=== PATIENT | female | born 1980 | race Caucasian/White ===

== ENCOUNTER 2016-12-04 20:25 | Emergency (ER) | payer OTHER ==
[~2016-12-04] VITALS: Ht 157.5 cm; Wt 173.7 kg
[~2016-12-04 20:25] MED LIST: ASPIRIN81 M1 PO; HTN MED; HYDROCHLOROTHIA50 M1 PO; K-DUR10 MEQ PO; LASIX80 M1 PO; METOPROLOL25 MG PO; NORCO 10/325 MG1 TAB PO; PROAIR HFA0.09 MG/Ac IH; PROPRANOLOL 20 MG; PROPRANOLOL10 MG PO; PROZAC; PROZAC20 MG PO; RISPERDAL; TRAMADOL HCL50 MG PO; TRAMADOL50 MG PO; TRAZADONE; TRAZADONE HYDR100 MG PO; WELLBUTRIN; WELLBUTRIN150 MG PO; [UNRECOGNIZED DRUG - REMARK]
[2016-12-04 20:30] VITALS: BP 159/92
--- NOTE | 2016-12-04 21:55 | NUR ---
PT TAKEN TO BED 5
--- NOTE | 2016-12-04 22:11 | NUR ---
PATIENT PRESENTS TO ED WITH GENERALIZED RASH TO LT SIDE OF GROIN AREA . PT STATES RASH HAS BEEN APPARENT [id number] WITH NOTED EYTHEMA AND EDEMA . DENIES N/V/D; SKIN IS PINK/WARM/DRY; AAOX4 WITH EVEN AND STEADY GAIT; LUNGS CLEAR BL; HR EVEN AND REGULAR; PT DENIES ANY FEVER, CP, SOB, OR COUGH AT THIS TIME; PATIENT STATES PAIN OF 8/10 AT THIS TIME; VSS; PATIENT POSITIONED FOR COMFORT; HOB ELEVATED; BEDRAILS UP X2; BED DOWN. ER MD MADE AWARE OF PT STATUS.
[2016-12-04 23:15] VITALS: BP 159/92
--- NOTE | 2016-12-04 23:15 | NUR ---
Patient discharged with v/s stable. Written and verbal after care instructions given and explained. Patient alert, oriented and verbalized understanding of instructions. Ambulatory with steady gait. All questions addressed prior to discharge. ID band removed. Patient advised to follow up with PMD. Rx of AUGMENTIN 875MG PO BID WITH MEALS, BACTRIM DS 800MG-160MG PO BID, AND IBUPROFEN given. Patient educated on indication of medication including possible reaction and side effects. Opportunity to ask questions provided and answered.
== END 2016-12-04 23:15 | disposition home or self-care (01) ==
LOC: MED 20:25
DX: L02.214 Cutaneous abscess of groin (principal); L02.211 Cutaneous abscess of abdominal wall; N61.1 Abscess of the breast and nipple; J45.909 Unspecified asthma, uncomplicated; I11.0 Hypertensive heart disease with heart failure; I50.9 Heart failure, unspecified; Z79.899 Other long term (current) drug therapy

== ENCOUNTER 2016-12-24 22:43 | Emergency (ER) | payer OTHER ==
[~2016-12-24] VITALS: Ht 157.5 cm; Wt 172.4 kg
[2016-12-24 23:17] VITALS: BP 126/101
--- NOTE | 2016-12-25 02:16 | NUR ---
PT TAKEN TO BED 5
--- NOTE | 2016-12-25 02:27 | NUR ---
PATIENT PRESENTS TO ED WITH RT SIDED FACIAL PAIN . PT STATES SHE ONLY FEELS THE PAIN WHEN SHE PRESSES ON THE LOWER RT SIDE OF HER NECK. PT C/O N/V/D . SKIN IS PINK/WARM/DRY; AAOX4 WITH EVEN AND STEADY GAIT; LUNGS CLEAR BL; HR EVEN AND REGULAR; PT DENIES ANY FEVER, CP, SOB, OR COUGH AT THIS TIME; PATIENT STATES PAIN OF 8/10 AT THIS TIME; VSS; PATIENT POSITIONED FOR COMFORT; HOB ELEVATED; BEDRAILS UP X2; BED DOWN. ER MD MADE AWARE OF PT STATUS. FAMILY AT BEDSIDE
--- NOTE | 2016-12-25 02:33 | NUR ---
Dr. King evaluating patient at bedside.
[2016-12-25] MEDS ORDERED: MORPHINE SULFATE 5 MG/ML VIAL IVP ONE ×2 (02:40→03:45)
--- NOTE | 2016-12-25 03:17 | NUR ---
AWAITING MORPHINE TO BE DELIVERED DUE TO ER PYXIS RUNNING OUT
[2016-12-25] MEDS ORDERED: MORPHINE SULFATE 10 MG/ML SYR ONE ×2 (03:38→04:03)
[2016-12-25] MEDS ORDERED: ceFAZolin 1,000 MG VIAL IM ONE (03:45)
[2016-12-25] MEDS ORDERED: WATER STERILE 10 ML MC ONE (04:07)
--- NOTE | 2016-12-25 04:21 | NUR ---
Patient appears to be resting comfortably in bed. Vital Signs within normal limits. Respirations even and unlabored. SIGNIFICANT OTHER AT BEDSIDE
[2016-12-25 04:37] VITALS: BP 125/72
--- NOTE | 2016-12-25 04:38 | NUR ---
Patient discharged with v/s stable. Written and verbal after care instructions given and explained. Patient alert, oriented and verbalized understanding of instructions. Ambulatory with steady gait. All questions addressed prior to discharge. ID band removed. Patient advised to follow up with PMD. Rx of PERCOCET AND AUGMENTIN 875MG PO BID WITH MEALS given. Patient educated on indication of medication including possible reaction and side effects. Opportunity to ask questions provided and answered.
== END 2016-12-25 04:38 | disposition home or self-care (01) ==
LOC: MED 22:43
DX: K04.7 Periapical abscess without sinus (principal); J45.909 Unspecified asthma, uncomplicated; I11.0 Hypertensive heart disease with heart failure; I50.9 Heart failure, unspecified; M06.9 Rheumatoid arthritis, unspecified
CPT/HCPCS: 36415; 80048; 81001; 81025; 85025; 87086; 96372; 96374; 99284; J0690; J2270

== ENCOUNTER 2018-05-06 18:56 | Emergency (ER) | payer OTHER ==
[~2018-05-06] VITALS: Ht 157.5 cm; Wt 136.1 kg
[~2018-05-06 18:56] MED LIST changes: +ACET-787 PO; +ALBU-136 IH; +ASPI81CT89 PO; -ASPIRIN81 M1 PO; +FLUO-387 PO; +FURO-571 PO; -HTN MED; +HYDR-3108 PO; -HYDROCHLOROTHIA50 M1 PO; -K-DUR10 MEQ PO; -LASIX80 M1 PO; +METO25TA14 PO; -METOPROLOL25 MG PO; -NORCO 10/325 MG1 TAB PO; +POTA10TE30 PO; -PROAIR HFA0.09 MG/Ac IH; +PROP10TA PO; -PROPRANOLOL 20 MG; -PROPRANOLOL10 MG PO; -PROZAC; -PROZAC20 MG PO; -RISPERDAL; +TRAM50TA3 PO; -TRAMADOL HCL50 MG PO; -TRAMADOL50 MG PO; -TRAZADONE; -TRAZADONE HYDR100 MG PO; -WELLBUTRIN; -WELLBUTRIN150 MG PO; -[UNRECOGNIZED DRUG - REMARK]
[2018-05-06 19:00] VITALS: BP 100/53
--- NOTE | 2018-05-06 19:15 | NUR ---
PT BIB FRIEND W/C/O BODY ACHES ALL OVER X2DAYS. PT STATES SHE BELIEVES SHE IS HAVING A FIBROMYALGIA FLARE UP. PT STATES HER PAIN IS 10/10 AND IT FEELS SHARP LIKE HER BONES ARE CRACKING. PT STATES IT IS HARD FOR HER TO WALK. PT AAOX4, ON ROOM AIR. NO S/S OF DISTRESS NOTED. PMH: FIBROMYALGIA, HTN, CHF, RHUEMATOID ARTHRITIS NKA
[2018-05-06] MEDS ORDERED: MORPHINE SULFATE 10 MG/ML SYR IM ONE (20:50)
[2018-05-06] MEDS ORDERED: methylPREDNISolone SS 125 MG/2 ML VIAL IM ONE (20:50)
[2018-05-06] MEDS ORDERED: MORPHINE SULFATE 4 MG/ML SYR ONE (21:12)
[2018-05-06] MEDS ORDERED: MORPHINE SULFATE 2 MG/ML SYR ONE (21:13)
[2018-05-06] MEDS ORDERED: ONDANSETRON 4 MG TAB PO ONE (22:00)
[2018-05-06 22:10] VITALS: BP 150/72
--- NOTE | 2018-05-06 22:12 | NUR ---
Patient discharged with v/s stable. Written and verbal after care instructions given and explained. Patient verbalized understanding. Ambulatory with steady gait. PT GETTING RIDE HOME FROM FRIEND, ADVISED NOT TO DRIVE. All questions addressed prior to discharge. Advised to follow up with PMD.
== END 2018-05-06 22:12 | disposition home or self-care (01) ==
LOC: MED 18:56
DX: M79.1 Myalgia (principal); J45.909 Unspecified asthma, uncomplicated; I50.9 Heart failure, unspecified; I10 Essential (primary) hypertension; Z79.899 Other long term (current) drug therapy
CPT/HCPCS: 96372; 99284; J2270; J2930; Q0162

== ENCOUNTER 2019-05-09 07:55 | Emergency (ER) | payer OTHER ==
[~2019-05-09] VITALS: Ht 157.5 cm; Wt 156.5 kg
[~2019-05-09 07:55] MED LIST changes: +ASPI-1718 PO; -ASPI81CT89 PO
[2019-05-09 08:00] VITALS: BP 149/84
--- NOTE | 2019-05-09 08:06 | NUR ---
Patient ambulated to bed 4. RN evaluating patient at bedside.
--- NOTE | 2019-05-09 08:10 | NUR ---
PT C/O INSECT BITE ON CHIN WITH THICK GREEN DRAINAGE X 2 DAYS. PT STATES SHE IS UNABLE TO SEE PAIN SPECIALIST DUE TO INSURANCE REASONS. SHE ALSO C/O THROBBING HEADACHE 05/11. SHE ALSO NEEDS MEDICATION REFILL FOR NORCO 10/ FOR FIBROMYALGIA AND RA, AND AN ABUTEROL INHALER FOR ASTHMA. DENIES N/V/D; SKIN IS PINK/WARM/DRY; AAOX4 WITH EVEN AND STEADY GAIT; PT DENIES ANY FEVER, CP, SOB, OR COUGH AT THIS TIME; PATIENT STATES BITE PAIN OF 10 AT THIS TIME; VSS; PATIENT POSITIONED FOR COMFORT; HOB ELEVATED; BEDRAILS UP X1; BED DOWN. ER MD MADE AWARE OF PT STATUS.
--- NOTE | 2019-05-09 08:22 | NUR ---
Dr. Vázquez evaluating patient at bedside.
[2019-05-09 08:42] VITALS: BP 122/72
--- NOTE | 2019-05-09 08:42 | NUR ---
Patient discharged with v/s stable. Written and verbal after care instructions given and explained. Patient alert, oriented and verbalized understanding of instructions. Ambulatory with steady gait. All questions addressed prior to discharge. ID band removed. Patient advised to follow up with PMD. Rx of Arcadia and Proair HFA given. Patient educated on indication of medication including possible reaction and side effects. Opportunity to ask questions provided and answered.
== END 2019-05-09 08:42 | disposition home or self-care (01) ==
LOC: MED 07:55
DX: M06.9 Rheumatoid arthritis, unspecified (principal); L02.01 Cutaneous abscess of face; J45.909 Unspecified asthma, uncomplicated; F17.210 Nicotine dependence, cigarettes, uncomplicated; I11.0 Hypertensive heart disease with heart failure; I50.9 Heart failure, unspecified; Z71.6 Tobacco abuse counseling; Z98.890 Other specified postprocedural states; Z79.82 Long term (current) use of aspirin; Z79.899 Other long term (current) drug therapy
CPT/HCPCS: 99283

== ENCOUNTER 2019-07-03 15:31 | Emergency (ER) | payer OTHER ==
[~2019-07-03] VITALS: Ht 157.5 cm; Wt 152.4 kg
[2019-07-03 15:37] VITALS: BP 150/85
--- NOTE | 2019-07-03 15:40 | NUR ---
Pt taken to bed 7.
--- NOTE | 2019-07-03 16:00 | NUR ---
C/O IRRITATION/POSS. "BUG BITE" TO RUQ/FLANK AREA, 10/ AND "STINGING" X3 WEEKS. REDNESS/IRRITATION NOTED TO RUQ IN SKIN FOLDS. PT STATES SHE HAS BEEN NAUSEOUS AND VOMITING FOR 3 WEEKS WELL. TENDERNESS NOTED TO THE AREA. PT DENIES FEVER. NO OPEN WOUND NOTED. SIDE RAIL UP X1, BED IN LOW POSITION
--- NOTE | 2019-07-03 16:15 | NUR ---
Patient being evaluated by physician at bedside.
[2019-07-03 16:39] VITALS: BP 150/85
--- NOTE | 2019-07-03 16:39 | NUR ---
Patient discharged with v/s stable. Written and verbal after care instructions given and explained. Patient verbalized understanding. Ambulatory with steady gait. All questions addressed prior to discharge. Advised to follow up with PMD.
== END 2019-07-03 16:39 | disposition home or self-care (01) ==
LOC: MED 15:31
DX: T63.301A Toxic effect of unspecified spider venom, accidental (unintentional), initial encounter (principal); J45.909 Unspecified asthma, uncomplicated; I11.0 Hypertensive heart disease with heart failure; I50.9 Heart failure, unspecified; Z79.82 Long term (current) use of aspirin; Z79.899 Other long term (current) drug therapy; Y92.89 Other specified places as the place of occurrence of the external cause
CPT/HCPCS: 99281

== ENCOUNTER 2019-09-13 22:22 | Emergency (ER) | payer OTHER ==
[~2019-09-13] VITALS: Ht 157.5 cm; Wt 145.1 kg
[2019-09-13 22:25] VITALS: BP 192/75
--- NOTE | 2019-09-13 22:25 | NUR ---
TO BED # 04 AMBULATORY
--- NOTE | 2019-09-13 22:35 | NUR ---
39/F presents to ED with family/friend, c/o SOB and nonradiaiting L sided CP, x3 days. Reports cough x1 month. Reports nausea, denies vomiting. Pt awake and alert, obesity noted, skin normal color warm and dry, SPO2 100% on RA, RR 16 even and unlabored. Lung sounds clear BL. HR even and regular, sinus tach on monitor. BLE edema pitting +3, with tenderness. HX CHF, HTN, Fibromyalgia, asthma, RA Rx Lasix and potassium (ran out/unable to get, for 3 weeks)
--- NOTE | 2019-09-13 22:38 | NUR ---
Dr. Mathis examining patient.
--- NOTE | 2019-09-13 23:02 | NUR ---
X-Ray at bedside.
--- NOTE | 2019-09-13 23:30 | NUR ---
Pt c/o pain all over body from fibromyalgia, Dr Mathis made aware. Per mil cadena, pt is pending d/c.
[2019-09-14 00:09] VITALS: BP 145/84
--- NOTE | 2019-09-14 00:09 | NUR ---
DPatient discharged with v/s stable. Written and verbal after care instructions given and explained. Patient verbalized understanding. Ambulatory with steady gait. All questions addressed prior to discharge. Advised to follow up with PMD.
== END 2019-09-14 00:09 | disposition home or self-care (01) ==
LOC: MED 22:22
DX: R06.4 Hyperventilation (principal); Z71.6 Tobacco abuse counseling; L98.8 Other specified disorders of the skin and subcutaneous tissue; J45.909 Unspecified asthma, uncomplicated; I11.0 Hypertensive heart disease with heart failure; I50.9 Heart failure, unspecified; F17.210 Nicotine dependence, cigarettes, uncomplicated; Z79.891 Long term (current) use of opiate analgesic; Z79.899 Other long term (current) drug therapy; Z79.82 Long term (current) use of aspirin; Z79.51 Long term (current) use of inhaled steroids
CPT/HCPCS: 36415; 71045; 83880; 99284

== ENCOUNTER 2020-08-25 22:00 | Emergency (ER) | payer OTHER ==
[~2020-08-25] VITALS: Ht 154.9 cm; Wt 137.0 kg
[~2020-08-25 22:00] MED LIST changes: -ACET-787 PO; -ASPI-1718 PO; +ASPI-1822 PO; +HYDR-5191 PO
[2020-08-25 22:06] VITALS: BP 157/89
[2020-08-25] MEDS ORDERED: FUROSEMIDE 40 MG TAB PO ONE (22:30)
[2020-08-25] MEDS ORDERED: cefTRIAXone 1,000 MG in LIDOCAINE MPF 1% 2.1 ML IM ONE (22:30)
[2020-08-25] MEDS ORDERED: POTASSIUM CHLORIDE 10 MEQ TABER PO ONE (22:30)
--- NOTE | 2020-08-25 22:34 | NUR ---
PT RAN OUT OF HER DIURECTICS 1 WEEKS AGO AND SINCE HAS DEVELOPED EDEMA AND PAIN TO L LEG. SKIN IS TIGHT WITH +1 PITTING EDEMA. SKIN INTACT NO REDNESS. PT ALOS C/O PAIN WITH URIANTION AND FLANK PAIN X 3 DAYS. AFEBRILE, NO SOB. PT PLACED IN GOWN AND BED INLOWEST POSITION WITH SIDERAIL UP X 1. NKA HX - CHF, RA, HTN
[2020-08-25] MEDS ORDERED: cefTRIAXone 1,000 MG VIAL ONE (22:35)
[2020-08-25] MEDS ORDERED: LIDOCAINE MPF 1% 5 ML ONE (22:36)
[2020-08-25] MEDS ORDERED: NAPROXEN 500 MG TAB ONE (22:56)
[2020-08-25] MEDS ORDERED: NAPROXEN 500 MG TAB PO SCH (23:05)
[2020-08-25 23:14] VITALS: BP 157/89
--- NOTE | 2020-08-25 23:14 | NUR ---
Patient discharged with v/s stable. Written and verbal after care instructions given and explained. Patient alert, oriented and verbalized understanding of instructions. Ambulatory with steady gait. All questions addressed prior to discharge. ID band removed. Patient advised to follow up with PMD. Rx of NAPROXEN, KEFLEX, K-DUR, AND LASIX given. Patient educated on indication of medication including possible reaction and side effects. Opportunity to ask questions provided and answered.
[2020-08-26] MEDS ORDERED: NAPROXEN 500 MG TAB PO SCH (09:00)
== END 2020-08-25 23:14 | disposition home or self-care (01) ==
LOC: MED 22:00
DX: M79.605 Pain in left leg (principal); F17.210 Nicotine dependence, cigarettes, uncomplicated; Z71.6 Tobacco abuse counseling
CPT/HCPCS: 81002; 81025; 96372; 99284; J0696; J2001

== ENCOUNTER 2021-02-01 16:28 | Emergency (ER) | payer OTHER ==
[~2021-02-01] VITALS: Ht 157.5 cm; Wt 117.9 kg
[~2021-02-01 16:28] MED LIST changes: -HYDR-3108 PO; +HYDR50TA38 PO
[2021-02-01 16:39] VITALS: BP 155/91
--- NOTE | 2021-02-01 16:42 | NUR ---
PT TAKEN TO LOBBY TO WAIT FOR FURTHER EVALUATION.
--- NOTE | 2021-02-01 16:45 | NUR ---
40 Y/O FEMALE REFERRED BY PCP FOR MED REFILL. PT STATES SHE MADE IT LATE TO PCP OFFICE, WAS TOLD TO COME TO ER TO BE MEDICATED FOR GENERALIZED PAIN 06/11 DESCRIBES THROBBING/ACHING X1DAY. PMH: FIBROMYALGIA, RA, AND ASTHMA RX: MORPHINE 15MG, AND NORCO 10MG. NKA
--- NOTE | 2021-02-01 17:02 | NUR ---
JOSHUA MALDONADO WITH PT IN TRIAGE FOR FURTHER EVALUATION.
[2021-02-01] MEDS ORDERED: HYDROcodone/APAP 5/325 MG 1 TAB TAB PO ONE (17:10)
[2021-02-01] MEDS ORDERED: ACET-8386 PO (17:17)
[2021-02-01] MEDS ORDERED: ALBU0.0912 IH (17:21)
[2021-02-01 17:41] VITALS: BP 155/91
--- NOTE | 2021-02-01 17:42 | NUR ---
Patient discharged with v/s stable. Written and verbal after care instructions given and explained. Patient alert, oriented and verbalized understanding of instructions. Ambulatory with steady gait. All questions addressed prior to discharge. ID band removed. Patient advised to follow up with PMD. Rx of NORC O 5MG-325MG PO Q6H PRN PAIN, AND ALBUTEROL INHALER 2 PUFFS Q4-6H PRN SOB given. Patient educated on indication of medication including possible reaction and side effects. Opportunity to ask questions provided and answered.
== END 2021-02-01 17:42 | disposition home or self-care (01) ==
LOC: MED 16:28
DX: G89.29 Other chronic pain (principal); M79.10 Myalgia, unspecified site; J45.909 Unspecified asthma, uncomplicated; I11.0 Hypertensive heart disease with heart failure; Z76.0 Encounter for issue of repeat prescription; Z79.899 Other long term (current) drug therapy
CPT/HCPCS: 99283

== ENCOUNTER 2021-04-14 00:19 | Emergency (ER) | payer OTHER ==
[~2021-04-14] VITALS: Ht 157.5 cm; Wt 135.6 kg
[~2021-04-14 00:19] MED LIST changes: +ACET-8386 PO; +ALBU-118 IH; -ALBU-136 IH; +ALBU0.0912 IH
[2021-04-14 00:28] VITALS: BP 176/88
--- NOTE | 2021-04-14 00:36 | NUR ---
pt ambulated to ER lobby w/ steady gait. No acute distress noted. Pt provided w/ urine specimen cup for encouragement of urine sample.
--- NOTE | 2021-04-14 01:03 | NUR ---
PT TAKEN TO BED 9
--- NOTE | 2021-04-14 01:41 | NUR ---
Dr. Morton examining patient.
[2021-04-14] MEDS ORDERED: KETOROLAC 30 MG/ML VIAL IM ONE (01:50)
[2021-04-14] MEDS ORDERED: FURO-570 PO (03:01)
[2021-04-14] MEDS ORDERED: MELO-174 PO (03:01)
[2021-04-14] MEDS ORDERED: HYDROcodone/APAP 5/325 MG 1 TAB TAB PO ONE (03:05)
--- NOTE | 2021-04-14 03:33 | NUR ---
d/c with VSS. d/c education given. opportunity to ask questions given and answered. rx of lasix and meloxicam given.
[2021-04-14 03:35] VITALS: BP 135/71
== END 2021-04-14 03:33 | disposition home or self-care (01) ==
LOC: MED 00:19
DX: M79.672 Pain in left foot (principal); J45.909 Unspecified asthma, uncomplicated; I11.9 Hypertensive heart disease without heart failure; Z79.899 Other long term (current) drug therapy; X58.XXXA Exposure to other specified factors, initial encounter; Y93.89 Activity, other specified; Y92.89 Other specified places as the place of occurrence of the external cause; Y99.8 Other external cause status
CPT/HCPCS: 73630; 96372; 99283; J1885

== ENCOUNTER 2021-04-16 20:11 | Emergency (ER) | payer OTHER ==
[~2021-04-16] VITALS: Ht 157.5 cm; Wt 131.5 kg
[~2021-04-16 20:11] MED LIST changes: +FURO-570 PO; +MELO-174 PO
[2021-04-16 20:15] VITALS: BP 157/88
--- NOTE | 2021-04-16 20:34 | NUR ---
TO BED 03 VIA W.C.
[2021-04-16] MEDS ORDERED: NALO4SPR NS (21:10)
--- NOTE | 2021-04-16 21:28 | NUR ---
BODY ACHE X 30MINS AGO. PT TOOK "MORPHINE PILLS TOO SOON AND I FELT SICK AND VOMITTED." PT DENIES ANY FEVER, CHILLS, DIARRHEA PMH: FIBROMYALGIA, RA, CHF, HTN, ASTHMA. NKDA.
--- NOTE | 2021-04-16 21:36 | NUR ---
[facility]- , CONTACT INFORMATION -- [phone], REQUESTING AN UPDATE.
[2021-04-16 22:45] VITALS: BP 152/95
--- NOTE | 2021-04-16 22:45 | NUR ---
Patient discharged with v/s stable. Written and verbal after care instructions given and explained. Patient alert, oriented and verbalized understanding of instructions. Ambulatory with steady gait. All questions addressed prior to discharge. ID band removed. Patient advised to follow up with PMD. Rx of NARCAN given. Patient educated on indication of medication including possible reaction and side effects. Opportunity to ask questions provided and answered.
== END 2021-04-16 22:45 | disposition home or self-care (01) ==
LOC: MED 20:11
DX: T40.601A Poisoning by unspecified narcotics, accidental (unintentional), initial encounter (principal); R11.10 Vomiting, unspecified; J45.909 Unspecified asthma, uncomplicated; I11.0 Hypertensive heart disease with heart failure; I50.9 Heart failure, unspecified; F17.210 Nicotine dependence, cigarettes, uncomplicated; Z79.899 Other long term (current) drug therapy; Z98.890 Other specified postprocedural states; Y92.89 Other specified places as the place of occurrence of the external cause
CPT/HCPCS: 99283

== ENCOUNTER 2021-06-20 00:58 | Emergency (ER) | payer OTHER ==
[~2021-06-20] VITALS: Ht 157.5 cm; Wt 113.4 kg
[~2021-06-20 00:58] MED LIST changes: +NALO4SPR NS
[2021-06-20 01:05] VITALS: BP 166/84
--- NOTE | 2021-06-20 01:05 | NUR ---
TO BED AMBULATORY
--- NOTE | 2021-06-20 02:00 | NUR ---
PT. LAYING ON BED, VOICES NO COMPLAINTS AT THIS TIME. AWAITING DISPOSITION
[2021-06-20] MEDS ORDERED: KETOROLAC 60 MG/2 ML VIAL IM ONE (02:20)
[2021-06-20] MEDS ORDERED: cephALEXin 500 MG CAP PO ONE (02:20)
[2021-06-20] MEDS ORDERED: CEPH-588 PO (02:31)
[2021-06-20] MEDS ORDERED: KETO10TA2 PO (02:31)
--- NOTE | 2021-06-20 02:40 | NUR ---
PT. NOT ABLE TO GIVE URINE SAMPLE AT THIS TIME. PT. STATES "I CAN'T GO"
[2021-06-20 02:54] VITALS: BP 166/84
--- NOTE | 2021-06-20 02:54 | NUR ---
Patient discharged with v/s stable. Written and verbal after care instructions given and explained. Patient alert, oriented and verbalized understanding of instructions. Ambulatory with steady gait. All questions addressed prior to discharge. ID band removed. Patient advised to follow up with PMD. Rx of KEFLEX AND KETOROLAC TROMETHAMINE given. Patient educated on indication of medication including possible reaction and side effects. Opportunity to ask questions provided and answered.
== END 2021-06-20 02:54 | disposition home or self-care (01) ==
LOC: MED 00:58
DX: L03.311 Cellulitis of abdominal wall (principal); M54.9 Dorsalgia, unspecified; J45.909 Unspecified asthma, uncomplicated; I11.0 Hypertensive heart disease with heart failure; I50.9 Heart failure, unspecified; Z79.899 Other long term (current) drug therapy; Z79.82 Long term (current) use of aspirin
CPT/HCPCS: 96372; 99283; J1885

== ENCOUNTER 2022-03-31 07:18 | Emergency (ER) | payer OTHER ==
[~2022-03-31] VITALS: Ht 157.5 cm; Wt 129.4 kg
[~2022-03-31 07:18] MED LIST changes: +CEPH-588 PO; +KETO10TA2 PO; +POTA10TA70 PO; -POTA10TE30 PO
[2022-03-31 07:22] VITALS: BP 165/88
[2022-03-31] MEDS ORDERED: HYDR-5191 PO (07:41)
--- NOTE | 2022-03-31 07:50 | NUR ---
NO NURSING INTERVENTIONS GIVEN. NO NEED FOR COMPLETE
--- NOTE | 2022-03-31 07:51 | NUR ---
Patient discharged with v/s stable. Written and verbal after care instructions given and explained. Patient alert, oriented and verbalized understanding of instructions. Ambulatory with steady gait. All questions addressed prior to discharge. ID band removed. Patient advised to follow up with PMD. Rx of HYDROCONDE/ACETAMINOPHEN given. Patient educated on indication of medication including possible reaction and side effects. Opportunity to ask questions provided and answered.
[2022-03-31 07:52] VITALS: BP 165/88
== END 2022-03-31 07:51 | disposition home or self-care (01) ==
LOC: MED 07:18
DX: M79.7 Fibromyalgia (principal); Z76.0 Encounter for issue of repeat prescription; I11.0 Hypertensive heart disease with heart failure; I50.9 Heart failure, unspecified; J45.909 Unspecified asthma, uncomplicated; Z79.899 Other long term (current) drug therapy; Z79.2 Long term (current) use of antibiotics; Z79.891 Long term (current) use of opiate analgesic; Z79.82 Long term (current) use of aspirin
CPT/HCPCS: 99281

== ENCOUNTER 2022-08-15 16:52 | Emergency (ER) | payer OTHER ==
[~2022-08-15] VITALS: Ht 157.5 cm; Wt 90.7 kg
--- NOTE | 2022-08-15 16:53 | NUR ---
Patient BIBA to bed 4 at this time.
[2022-08-15 16:58] VITALS: BP 134/82
[2022-08-15] MEDS ORDERED: LORazepam 2 MG/ML VIAL IVP ONE (17:05)
--- NOTE | 2022-08-15 17:22 | NUR ---
PT BIB ALS RUN C/C SEIZURE. PT HAD WITNESSED TONIC CLONIC SEIZURE LASTING APPROX 2 MINUTES. PT WITHDRAWLING FROM [place] X3 DAYS. PT STATES TAKES 20-30 PILLS FOR 4 MONTHS. NSR ON MONITOR. IV INSERTED TO RIGHT FA #20GUAGE. SEIZURE PRECAUTIONS INITIATED.
--- NOTE | 2022-08-15 17:40 | NUR ---
Patient does not wish to proceed with medical care recommended by DR MOTLEY. Patient given information related to possible complications, up to and including , which could occur as a result of leaving hospital at this time. Patient verbalizes understanding of risks involved leaving against medical advice. Patient has signed AMA form.
[2022-08-15 17:51] LABS: BILIRUBIN,URINE 1+ (NEGATIVE); BLOOD, URINE 2+ (NEGATIVE); COLOR,URINE YELLOW (YELLOW); LEUKOCYTE ESTERASE ,URINE 2+ (NEGATIVE); NITRITE, URINE NEGATIVE (NEGATIVE); PH,URINE 6.5 (5.0-9.0); UGLUCOSE NEGATIVE (NEGATIVE)
[2022-08-15 17:57] LABS: APPEARANCE,URINE CLOUDY (CLEAR)
[2022-08-15 18:15] LABS: RBC,URINE 11-20 (MOD) /HPF (0-5); WBC,URINE 60-80 /HPF (0-5)
[2022-08-15 18:16] LABS: BARBITURATE, URINE NEGATIVE ng/ml (NEG <=200); YEAST,URINE Moderate /HPF (None Seen)
[2022-08-15 18:17] LABS: BENZODIAZEPINE, URINE NEGATIVE ng/mL (NEG <=200); CANNABINOID, URINE NEGATIVE ng/mL (NEG <=50); COCAINE, URINE NEGATIVE ng/mL (NEG <=300); OPIATE, URINE NEGATIVE ng/mL (NEG <=2000); PHENCYCLIDINE SCREEN,URINE NEGATIVE ng/mL (NEG <=25)
== END 2022-08-15 17:40 | disposition left against medical advice (07) ==
LOC: MED 16:52
DX: R56.9 Unspecified convulsions (principal); J45.909 Unspecified asthma, uncomplicated; I10 Essential (primary) hypertension; I25.10 Atherosclerotic heart disease of native coronary artery without angina pectoris; Z79.899 Other long term (current) drug therapy
CPT/HCPCS: 80305; 81001; 81025; 87086; 93005; 96374; 99291; J2060

== ENCOUNTER 2022-10-19 13:53 | Emergency (ER) | payer OTHER ==
[~2022-10-19] VITALS: Ht 160 cm; Wt 126.6 kg
[~2022-10-19 13:53] MED LIST changes: -ACET-8386 PO; +ACET-8905 PO
[2022-10-19 14:22] VITALS: BP 138/75
--- NOTE | 2022-10-19 14:30 | NUR ---
PT AMB TO BED 8.
--- NOTE | 2022-10-19 14:56 | NUR ---
XRAY AT BEDSIDE
--- NOTE | 2022-10-19 15:13 | NUR ---
42YO FEMALE C/O COUGH, EYE PAIN , EAR AND HEADACHE X2DAYS. MOIST PRODUCTIVE PRESENT. REPORTS CHEST PAIN W/O RADIATION AND BLOOD ON COUGH. CLEAR DANDRE LUNGS SOUNDS. DENIES RELIEF AFTER MOTRIN. NOTES NAUSEA XTODAY. EAR/EYES W/O VISIBLE INJURY. DENIES V/D, FEVER, CHILLS OR SOB. +SICK FAM AT HOME. PT AAOX4, RESPIRATIONS EVEN AND UNLABORED.HOB POSITIONED PER COMFORT. ON BENEFITS ANALYST. HX:CHF, HTN NKA
--- NOTE | 2022-10-19 15:30 | NUR ---
pt swabbed for covid(parker) and flu. walked and handed to lab
[2022-10-19] MEDS ORDERED: PRED20TA5 PO (17:46)
[2022-10-19] MEDS ORDERED: CHLO-1090 PO (17:46)
[2022-10-19 18:00] VITALS: BP 135/82
--- NOTE | 2022-10-19 18:00 | NUR ---
Patient discharged with v/s stable. Written and verbal after care instructions FOR UPPER RESPIRATORY INFECTION AND COUGH given and explained. Patient alert, oriented and verbalized understanding of instructions. Ambulatory with steady gait. All questions addressed prior to discharge. ID band removed. Patient advised to follow up with PMD. Rx of DELTASONE AND CHLORPHENIRAMINE given. Opportunity to ask questions provided and answered.
== END 2022-10-19 17:30 | disposition home or self-care (01) ==
LOC: MED 13:53
DX: R05.9 Cough, unspecified (principal); Z20.822 Contact with and (suspected) exposure to COVID-19; H92.09 Otalgia, unspecified ear; J06.9 Acute upper respiratory infection, unspecified; J45.909 Unspecified asthma, uncomplicated; I11.0 Hypertensive heart disease with heart failure; I50.9 Heart failure, unspecified; F17.200 Nicotine dependence, unspecified, uncomplicated; Z98.890 Other specified postprocedural states; Z79.899 Other long term (current) drug therapy; Z79.82 Long term (current) use of aspirin
CPT/HCPCS: 71045; 87426; 87804; 99284; Q0092

== ENCOUNTER 2023-09-11 14:40 | Emergency (ER) | payer OTHER ==
[~2023-09-11] VITALS: Ht 160 cm; Wt 95.3 kg
[~2023-09-11 14:40] MED LIST changes: +CHLO-1090 PO; +PRED20TA5 PO
[2023-09-11 15:07] VITALS: BP 137/99; PULSE 77; RESP 17; TEMP 97.1; O2SAT 98
[2023-09-11] MEDS ORDERED: KETOROLAC 30 MG/ML VIAL IM ONE (15:25)
[2023-09-11 15:59] LABS: APPEARANCE,URINE CLEAR (CLEAR); BILIRUBIN,URINE NEGATIVE (NEGATIVE); BLOOD, URINE 2+ (NEGATIVE); COLOR,URINE YELLOW (YELLOW); LEUKOCYTE ESTERASE ,URINE 1+ (NEGATIVE); NITRITE, URINE NEGATIVE (NEGATIVE); PROTEIN,URINE 1+ (NEGATIVE); UGLUCOSE NEGATIVE (NEGATIVE); UROBILINOGEN,URINE 0.2 EU/dL (0.2 - 1)
[2023-09-11 16:17] LABS: BACTERIA,URINE 1+ /HPF (None Seen); RBC,URINE 0-5 /HPF (0-5); WBC,URINE 0-5 /HPF (0-5)
[2023-09-11 16:18] LABS: MUCUS,URINE None Seen /LPF (None Seen); SQUAMOUS EPITHELIAL CELL,UR 0-3 (FEW) /LPF (0-3 (FEW))
[2023-09-11] MEDS ORDERED: CEPH250C16 PO (16:31)
[2023-09-11 16:35] VITALS: BP 137/99; PULSE 77; RESP 17; TEMP 97.1; O2SAT 98
== END 2023-09-11 16:36 | disposition home or self-care (01) ==
LOC: MED 14:40
DX: N30.00 Acute cystitis without hematuria (principal); J45.909 Unspecified asthma, uncomplicated; I11.9 Hypertensive heart disease without heart failure; Z79.899 Other long term (current) drug therapy
CPT/HCPCS: 81001; 81025; 87086; 96372; 99283; J1885; 87186

== ENCOUNTER 2024-06-17 19:22 | Emergency (ER) | payer OTHER ==
[~2024-06-17] VITALS: Ht 157.5 cm; Wt 117.9 kg
[~2024-06-17 19:22] MED LIST changes: +CEPH250C16 PO; +HYDR-5071 PO; -HYDR-5191 PO
[2024-06-17 19:27] VITALS: BP 173/99; PULSE 75; RESP 20; TEMP 98.7; O2SAT 100
[2024-06-17 19:47] VITALS: BP 173/99; PULSE 75; RESP 20; TEMP 98.7; O2SAT 98
[2024-06-17 20:00] VITALS: O2SAT 98
[2024-06-17] MEDS: ACETAMINOPHEN 325 MG TAB PO ONE (20:21)
[2024-06-17] MEDS ORDERED: CYCL-711 PO (21:58)
[2024-06-17] MEDS ORDERED: CEPH-588 PO (21:58)
[2024-06-17] MEDS ORDERED: IBUP-2218 PO (21:58)
[2024-06-17] MEDS ORDERED: ACET-10509 PO (21:58)
[2024-06-17] MEDS: KETOROLAC 30 MG/ML VIAL IM ONE (22:16)
== END 2024-06-17 22:12 | disposition home or self-care (01) ==
LOC: MED 19:22
DX: L03.116 Cellulitis of left lower limb (principal); J45.909 Unspecified asthma, uncomplicated; I11.0 Hypertensive heart disease with heart failure; I50.9 Heart failure, unspecified; Z79.1 Long term (current) use of non-steroidal anti-inflammatories (NSAID); Z79.899 Other long term (current) drug therapy
CPT/HCPCS: 93971; 99284; Q0092